=== PATIENT | female | born 1990 | race Caucasian/White ===

== ENCOUNTER 2021-05-31 00:45 | Emergency (ER) | payer SELFPAY ==
[~2021-05-31] VITALS: Ht 162.6 cm; Wt 75.0 kg
[2021-05-31] MEDS ORDERED: KETOROLAC 30MG/ML VIAL IV ONE (01:15)
[2021-05-31] MEDS ORDERED: DEXAMETHASONE 4MG/ML 1ML VIAL IV ONE (01:15)
[2021-05-31 01:39] LABS: BASOPHILS % 0.8 % (0.0-2.0); EOSINOPHILS % 0.9 % (0.0-5.0); HEMOGLOBIN. 13.1 g/dL (12.0-16.0); LYMPHOCYTES % 45.4 % (20.0-50.0); MEAN CORPUSCULAR HEMOGLOBIN 30.8 pg (28.0-32.0); MEAN CORPUSCULAR VOLUME 89.5 fL (81.0-99.0); MEAN PLATELET VOLUME 7.2 fl (7.4-10.4); MONOCYTES % 12.4 % (2.0-8.0); NEUTROPHILS % 40.5 % (40.0-76.0); PLATELET 517 x1000/uL (130-400); RED BLOOD CELL COUNT 4.25 mill/uL (4.2-5.4); RED CELL DISTRIBUTION WIDTH 13.2 % (11.6-14.6)
[2021-05-31 01:45] LABS: CHLORIDE 111 mEq/L (98-107)
[2021-05-31] MEDS ORDERED: ALBUTEROL (0.083%) 2.5MG/3ML NEB HHN SCH ×2 (02:45→03:15)
[2021-05-31] MEDS ORDERED: P50 MT (04:06)
[2021-05-31] MEDS ORDERED: ALBU18HF2 IH ×2 (04:06→04:08)
[2021-05-31] MEDS ORDERED: IBUP-2029 MT ×2 (04:15→04:16)
[2021-05-31 04:46] VITALS: BP 112/71
== END 2021-05-31 05:00 | disposition home or self-care (01) ==
LOC: ER 00:45
DX: J98.01 Acute bronchospasm (principal); B34.9 Viral infection, unspecified; Z20.822 Contact with and (suspected) exposure to COVID-19
CPT/HCPCS: 36415; 71045; 80053; 85025; 87426; 87804; 94640; 96374; 96375; 99284; J1100; J1885; Z7610